=== PATIENT | male | born 1955 | race Caucasian/White ===

== ENCOUNTER 2018-11-24 18:15 | Emergency (ER) | payer OTHER, SELFPAY ==
[2018-11-24 18:42] VITALS: BP 134/72; PULSE 84; RESP 18; TEMP 37.5; O2SAT 96; BMI 28.1
[2018-11-24] MEDS: ACETAMINOPHEN 325 MG TABLET 975 MG PO (21:53)
[2018-11-24 22:17] VITALS: BP 124/78; PULSE 75; RESP 18; TEMP 37.9; O2SAT 96
--- NOTE | 2018-11-24 22:23 | DI.RAD.S_ITS ---
PROCEDURE: XR CHEST 1V INDICATIONS: fever, cough TECHNIQUE: One view of the chest was acquired. COMPARISON: None. FINDINGS: Surgical changes and devices: None. Lungs and pleura: Left lower lobe infiltrate suspicious for pneumonia. No pleural effusions or pneumothorax. Mediastinum: Mediastinal contours appear normal. Heart size is normal. Bones and chest wall: No suspicious bony lesions. Overlying soft tissues appear unremarkable. IMPRESSION: Suspect left lower lobe pneumonia. Dictated by: Sahil Carrillo M.D. on 11/25/2018 at 9:14 Approved by: Sahil Carrillo M.D. on 11/25/2018 at 9:15
[2018-11-24 23:05] VITALS: TEMP 37.7
[2018-11-24 23:15] VITALS: BP 108/75; PULSE 71; RESP 15; TEMP 37.7; O2SAT 97
[2018-11-24] MEDS: OSELTAMIVIR 75 MG CAPSULE PO (23:15)
--- NOTE | 2018-11-25 08:40 | ED_ITS ---
HPI - URI/Sore Throat General Chief Complaint: Upper Respiratory Symptoms Stated Complaint: Sick with flu, progressed into lungs Time Seen by Provider: 11/24/18 22:23 Source: patient and family Mode of arrival: ambulatory Limitations: no limitations History of Present Illness HPI Narrative: 63-year-old male with history of hypertension hyperlipidemia presents with a chief complaint of headache, sore throat and cough as well as subjective fever and chills. His symptoms started yesterday and were rapid in onset. He denies any nausea, vomiting or diarrhea. He has had 2 episodes post flu pneumonia in the past and is concerned a repeat occurrence. He denies any chest pain or significant shortness of breath. MD Complaint: fever, cough and sore throat Onset (ago): hour(s) Duration: constant Severity: moderate Relieving factors: nothing Exacerbating factors: nothing Description of mucous: clear Able to tolerate fluids by mouth: Yes Context: sick contacts Treatments prior to arrival: acetaminophen and ibuprofen Related Data Home Medications Medication Instructions Recorded Confirmed ASPIRIN (Aspirin) 324 mg PO #0 03/10/10 ATENOLOL (Tenormin) 25 mg PO *[place] DOSE/FREQUENCY #0 03/10/10 FLECAINIDE ACETATE (Tambocor) 200 mg PO * [place] DOSE/FREQUENCY #0 03/10/10 Simvastatin (Zocor) 40 mg PO * [place] DOSE/FREQUENCY #0 03/10/10 Previous Rx's Medication Instructions Recorded oseltamivir [Tamiflu] 75 mg PO BID 5 Days #10 cap 11/24/18 Allergies Allergy/AdvReac Type Severity Reaction Status Date / Time No Known Drug Allergies Allergy Verified 11/24/18 18:45 Review of Systems Constitutional Reports chills, Reports fever(s), Denies lethargy, Reports poor appetite and Denies weakness Eyes Denies change in vision, Denies eye discharge, Denies irritation and Denies loss of vision ENT Ears, Nose, Mouth, and Throat: Denies change in voice, Denies neck pain and Reports sore throat Cardiovascular Denies chest pain, Denies irregular heart rhythm, Denies lightheadedness, Denies palpitations, Denies dyspnea, Denies dyspnea on exertion and Denies orthopnea Respiratory Reports cough, Denies dyspnea, Denies dyspnea on exertion and Denies wheezing Gastrointestinal Gastrointestinal: Denies abdominal pain, Denies change in bowel habits, Denies diarrhea, Denies nausea and Denies vomiting Genitourinary Denies hematuria, Denies flank pain, Denies urinary incontinence and Denies urinary urgency Musculoskeletal Denies neck pain Integumentary/Breasts Denies pruritus, Denies erythema, Denies rash and Denies wounds Neurologic Denies confusion, Denies loss of vision and Denies weakness Psychiatric Denies anxiety, Denies confusion, Denies depression, Denies homicidal ideation and Denies suicidal ideation Endocrine Denies palpitations Hematologic/Lymphatic Denies easy bruising Allergic/Immunologic Denies wheezing PFSH Social History Smoking Status: Current every day smoker Social History Smoking Status: Current every day smoker Exam Narrative Exam Narrative: GENERAL: 63-year-old male appears younger than stated age, obviously not feeling well. HEAD: Atraumatic. Normocephalic. No temporal or scalp tenderness. EYES: Pupils equal round and reactive. Extraocular motions intact. No scleral icterus. No injection or drainage. ENT: Nose without bleeding, purulent drainage or septal hematoma. Throat without erythema, tonsillar hypertrophy or exudate. Uvula midline. Airway patent. NECK: Trachea midline. No JVD or lymphadenopathy. Supple, nontender, no meningeal signs. CARDIOVASCULAR: Regular rate and rhythm without murmurs, gallops, or rubs. RESPIRATORY: Clear to auscultation. Breath sounds equal bilaterally. No wheezes, rales, or rhonchi. GASTROINTESTINAL: Abdomen soft, non-tender, nondistended. No hepato- splenomegaly, or palpable masses. No guarding. EXTREMITIES: No clubbing, cyanosis, or edema. No joint tenderness, effusion, or edema noted. BACK: Nontender without deformity or crepitance. No flank tenderness. NEURO: AOx3. SKIN: No rash or erythema. Initial Vital Signs Initial Vital Signs: Vital Signs Temperature 99.5 F 11/24/18 18:42 Pulse Rate 84 11/24/18 18:42 Respiratory Rate 18 11/24/18 18:42 Blood Pressure 134/72 11/24/18 18:42 Pulse Oximetry 96 11/24/18 18:42 Course Orders Ordered: Discontinued Medications Acetaminophen (Tylenol) 975 mg PO NOW ONE Stop: 11/24/18 21:48 Last Admin: 11/24/18 21:53 Dose: 975 mg Oseltamivir Phosphate (Tamiflu) 75 mg PO NOW ONE Stop: 11/24/18 23:09 Last Admin: 11/24/18 23:15 Dose: 75 mg MDM - URI/Sore Throat Lab Data Lab Results 11/24/18 Range/Units 21:50 Influenza A & B (PCR) Positive, type a A (Negative) Discharge Plan Departure Patient Disposition: Home Clinical Impression: Influenza Discharge Date/Time: 11/24/18 23:16 Interventions: ED Discharge Assessment Last Done: 11/24/18 23:15 Instructions: DI for Influenza -- Adult Activity Restrictions/Additional Instructions: *You have been diagnosed with [ influenza ] *What to do: *Take medications as directed *Follow up with your primary care provider in 2-3 days, call for an appointment. Let them know you were seen in the Emergency Department and that we ask that you be seen in follow up *Return to ER if you should have any new, worsening or concerning symptoms Prescriptions: New oseltamivir [Tamiflu] 75 mg capsule 75 mg PO BID 5 Days Qty: 10 RF: 0 No Action ASPIRIN (Aspirin) 324 mg PO Qty: 0 RF: 0 ATENOLOL (Tenormin) 25 mg PO *[place] DOSE/FREQUENCY Qty: 0 RF: 0 FLECAINIDE ACETATE (Tambocor) 200 mg PO * [place] DOSE/FREQUENCY Qty: 0 RF: 0 Simvastatin (Zocor) 40 mg PO * [place] DOSE/FREQUENCY Qty: 0 RF: 0 Referrals: Savanna Moody DO [Primary Care Provider] -
== END 2018-11-24 23:16 | disposition home or self-care (01) ==
PROVIDERS: Emergency Provider Emergency Medicine; PCP Family Medicine
DX: J11.1 Influenza due to unidentified influenza virus with other respiratory manifestations (principal)
CPT/HCPCS: 71045; 87400; 99282; 99283